=== PATIENT | female | born 1990 | race Caucasian/White ===

== ENCOUNTER → 2016-11-30 | Outpatient (CLI) | payer BC ==
--- NOTE | 2016-12-03 08:17 | XR ---
EXAMINATION TYPE: XR abdomen 1V DATE OF EXAM: 11/30/2016 3:30 PM COMPARISON: NONE HISTORY: Lower quadrant abdominal pain TECHNIQUE: One view abdominal series FINDINGS: The osseous structures are intact. The bowel gas pattern is nonspecific. Retained fecal debris throu ghout the colon. Spina bifida occulta lumbosacral junction. IMPRESSION: 1. Nonspecific abdomen.
== END | disposition home or self-care (01) ==
LOC: RADXRYALE 15:12
PROVIDERS: ATTEND Physician Assistant Medical
DX: R10.2 Pelvic and perineal pain (principal)
CPT/HCPCS: 74000

== ENCOUNTER → 2017-01-03 | Outpatient (CLI) | payer BC ==
--- NOTE | 2017-01-03 16:10 | CT ---
EXAMINATION TYPE: CT abdomen pelvis w con DATE OF EXAM: 01/03/2017 HISTORY: Right lower quadrant pain radiating to right flank. CT DLP: 898.00mGycm Automated Exposure Control for Dose Reduction was Utilized. CONTRAST: CT scan of the abdomen and pelvis is performed with IV Contrast, patient injected with 100 mL of Omni paque 300. COMPARISON: None. FINDINGS: Patient has very little intra-abdominal fat making evaluation suboptimal. LUNG BASES: No significant abnormality is appreciated. LIVER/GB: No significant abnormality is appreciated. PANCREAS: No significant abnormality is seen. SPLEEN: No significant abnormality is seen. ADRENALS: No significant abnormality is seen. KIDNEYS: Bladder is slightly distended extending into the lower upper pelvis anteriorly. BOWEL: The oral contrast does not reach level of terminal ileum making evaluation of distal bowel sub optimal. There is no suspicious small or large bowel dilatation. Appendix is not seen with certainty but there is no convincing evidence of inflammatory change at base of cecum to suggest acute appendic itis. Tiny amount of focal fluid right pelvis on axial image 72 is noted adjacent to anterior bladder margin inferior to cecum. There is mild to moderate wall thickening of terminal ileum near axial loree ge 56 and coronal image 21. This could be product of poor distention but a enteritis cannot be exclud ed. UTERUS/ADNEXA: Tiny amount of free fluid is seen in pelvic cul-de-sac on axial image 71, nonspecific finding. Uterus is anteverted in shape. Both ovaries are likely normal in size near axial image 70. LYMPH NODES: No greater than 1cm abdominal or pelvic lymph nodes are appreciated. OSSEOUS STRUCTURES: Transitional-type vertebra at lumbosacral junction is noted. OTHER: No significant additional abnormality is seen. IMPRESSION: 1. Possible enteritis at level of terminal ileum, consider infectious or inflammatory etiologies. No bowel obstruction is seen. Appendix is not seen with certainty but there is no suspicious inflammator y change at base of cecum. There is tiny amount of free fluid inferior to cecum of uncertain etiology . Small moderate free fluid is seen in pelvic cul-de-sac, nonspecific finding.
== END | disposition home or self-care (01) ==
LOC: RADCTMAIN 13:13
PROVIDERS: ATTEND Family Medicine
DX: R18.8 Other ascites (principal)
CPT/HCPCS: 74177; Q9967